=== PATIENT | male | born 1945 | race Caucasian/White ===

== ENCOUNTER 2017-02-18 09:50 | Day surgery (SDC) | payer MEDICARE, OTHER ==
--- NOTE | ~2017-02-18 | EGD ---
EGD REPORT [facility] [address] [address] NAME: UCHE LEBRON : [birth year] STATUS : REG [facility] PAT#: [id number] AGE: 72 ADM/REG DATE : 02/18/17 MR#: [id number] REPORT SERV DATE: 02/18/17 DICTATED BY: ESAU APONTE DATE: 02/18/17 REPORT STATUS : Draft TRANSCRIBED BY: [facility] DATE: 02/18/17 [facility] Patient Name: Uche Lebron Date of : 1945 Attending MD: ESAU APONTE MD Procedure Date No Time: 02/18/2017 Procedure: Colonoscopy Indications: Heme positive stool Referring MD: JACQUELIN BERG RN Medicines: Propofol per Anesthesia Complications: No immediate complications. Procedure: Pre-Anesthesia Assessment: - ASA Grade Assessment: IV - A patient with severe systemic disease that is a constant threat to life. After I obtained informed consent, the scope was passed under direct vision. Throughout the procedure, the patient's blood pressure, pulse, and oxygen saturations were monitored continuously. The PCF [id number] was introduced through the anus and advanced to the terminal ileum. The colonoscopy was performed without difficulty. The patient tolerated the procedure well. The quality of the bowel preparation was excellent. Findings: The terminal ileum appeared normal. A flat polyp was found in the cecum. The polyp was 3 mm in size. The polyp was removed with a cold biopsy forceps. Resection and retrieval were complete. Multiple medium-mouthed diverticula were found in the sigmoid colon. The retroflexed view of the distal rectum and anal verge was normal and showed no anal or rectal abnormalities. Impression: - The examined portion of the ileum was normal. - One 3 mm polyp in the cecum. Resected and retrieved. - Diverticulosis in the sigmoid colon. Recommendation: - The patient will be observed post-procedure, until all discharge criteria are met. - Return to previous diet today. - Continue present medications. - The findings and recommendations were discussed with the patient and their family. - After the procedure, if you experience any pain in abdomen or chest,shortness of breath,fever,chills,blood in stool,rectal bleeding,vomiting of any EGD REPORT [address] [address] NAME: UCHE LEBRON : [birth year] STATUS : REG [facility]#: [id number] AGE: 72 ADM/REG DATE : 02/18/17 MR#: [id number] REPORT SERV DATE: 02/18/17 DICTATED BY: ESAU APONTE DATE: 02/18/17 REPORT STATUS : Draft TRANSCRIBED BY: [employer] DATE: 02/18/17 material,nausea,black stools or weakness or dizziness, GO TO THE EMERGENCY IMMEDIATELY!!!!!!!!! Procedure Code(s): --- Professional --- 40788, Colonoscopy, flexible, proximal to splenic flexure; with biopsy, single or multiple Diagnosis Code(s): --- Professional --- K57.30, Diverticulosis of large intestine without perforation or abscess without bleeding D12.0, Benign neoplasm of cecum R19.5, Other fecal abnormalities CPT copyright 2013 [employer]. All rights reserved. The codes documented in this report are preliminary and upon web services architect review may be revised to meet current compliance requirements. Esau Aponte MD ESAU APONTE MD 02/18/2017 12:21 PM This report has been signed electronically. Number of Addenda: 0 Note Initiated On: 02/18/2017 11:54 AM Scope Withdrawal Time 0 hours 8 minutes 32 seconds [id number] [id number]
[~2017-02-18 09:50] MED LIST: ASAEC PO; COZAAR100 MG PO; EYE VITAMIN PO; FISH-EPA1000 MG PO; HYDROCODONE PO; LOTE20 PO; NIASPAN500 PO; OTC STOOL SOFTENER PO; PRILOSEC40 MG PO; PROVHFA; SPIRIVA INH; SYMBICORT 160/41 INH INH; T300 PO; THEO24300 PO; VITAMIN D1000 UNI1 PO; ZOCOR40 PO
== END 2017-02-18 23:59 | disposition home or self-care (01) ==
LOC: DMU 09:50
PROVIDERS: Internal Medicine Gastroenterology
PROC: 0DBH8ZX Excision of Cecum, Via Natural or Artificial Opening Endoscopic, Diagnostic (ICD-10-PCS; principal; 2017-02-18 13:00)
DX: D12.0 Benign neoplasm of cecum (principal); K57.30 Diverticulosis of large intestine without perforation or abscess without bleeding; J44.9 Chronic obstructive pulmonary disease, unspecified; K21.9 Gastro-esophageal reflux disease without esophagitis; I25.10 Atherosclerotic heart disease of native coronary artery without angina pectoris; I10 Essential (primary) hypertension; Z95.0 Presence of cardiac pacemaker; Z79.82 Long term (current) use of aspirin; Z79.899 Other long term (current) drug therapy; Z98.41 Cataract extraction status, right eye; Z98.42 Cataract extraction status, left eye
CPT/HCPCS: 88305

== ENCOUNTER 2017-03-11 16:49 | Inpatient (IN) | payer MEDICARE, OTHER ==
--- NOTE | ~2017-03-11 | HP ---
History And Physical [address] [place]. [address] NAME: UCHE CARRIZALES : [birth year] STATUS : ADM IN [facility]#: [id number] AGE: 72 ADM/REG DATE : 03/11/17 MR#: [id number] REPORT SERV DATE: 03/12/17 DICTATED BY: ROSARIO MONTEMAYOR DATE: 03/11/17 REPORT STATUS : Draft TRANSCRIBED BY: MODJeancarlos DATE: 03/11/17 DATE OF ADMISSION: 03/11/2017 TIME: 1730 hours. LOCATION: Seen in MICU. HISTORY OF PRESENT ILLNESS: The patient was transferred from [facility] for respiratory distress and pneumonia. This is a 72-year-old white male with oxygen-dependent COPD, presented with a 2- to 3-day history of increased shortness of breath, sputum production, and chills to [facility]. X-ray was done, right upper lobe pneumonia was found, they started on Rocephin and Zithromax, asked for transfer here. The patient arrived awake, alert, oriented, in no acute distress. PAST MEDICAL HISTORY: Cardiac stents in the past, pacemaker in the past in 2004, history of , hypertension, diverticulosis, macular degeneration, and polyps. ALLERGIES: NO KNOWN ALLERGIES. MEDICATIONS: Home medications include O2 2 L/minute, Spiriva 1 puff daily, Symbicort 2 puffs daily, Proventil HFA as needed, theophylline 300 mg b.i.d., losartan 100 mg p.o. daily, fish oil 1000 mg p.o. daily, vitamin capsules 1000 mg daily, simvastatin 40, theophylline 300 b.i.d. and omeprazole 40. REVIEW OF SYSTEMS: Otherwise negative and noncontributory. FAMILY HISTORY: Significant for one family member of colon cancer, one of breast cancer. PHYSICAL EXAMINATION: VITAL SIGNS: Blood pressure 115/61, pulse 84, saturation 98, temperature normal. HEENT: Head is normocephalic. Sclerae and conjunctivae are clear. NECK: Supple. Good upstroke. No bruits. CHEST: Decreased breath sounds. Some crackles in the right upper lobe. Occasional expiratory wheeze. CARDIAC: S1, S2. No murmurs or gallops. PMI is not displaced. ABDOMEN: Soft and nontender. No masses or organomegaly. EXTREMITIES: No clubbing, cyanosis, or edema. Pulses palpable. NEUROLOGIC: Grossly intact. LABORATORY DATA: Laboratories derived from [place] show troponin of 0.03, which is 1 unit above their cutoff. Also, H and H of 9.7 and 31.4, white count 99956, platelets 322,000. Chest x-ray is pending. IMPRESSION: History And Physical [address] [address] NAME: UCHE CARRIZALES : [birth year] STATUS : ADM IN [facility]#: [id number] AGE: 72 ADM/REG DATE : 03/11/17 MR#: [id number] REPORT SERV DATE: 03/12/17 DICTATED BY: ROSARIO MONTEMAYOR DATE: 03/11/17 REPORT STATUS : Draft TRANSCRIBED BY: KARMA DATE: 03/11/17 1. Community-acquired pneumonia. 2. Chronic obstructive pulmonary disease exacerbation. 3. History of coronary artery disease. 4. Oxygen dependency. 5. Hypertension. PLAN: Urinary antigens. Chest x-ray. Continue antibiotics. Check procalcitonin level. Bronchodilator protocol. RP/KARMA Rosario Montemayor M.D. / [id number] CC: Rosario Montemayor M.D.
--- NOTE | ~2017-03-11 | DS ---
Discharge Summary [facility] [address] [place]. [address] NAME: UCHE CARRIZALES : [birth year] STATUS : DIS IN PAT#: [id number] AGE: 72 ADM/REG DATE : 03/11/17 MR#: [id number] REPORT SERV DATE: 03/15/17 DICTATED BY: MAREK LAMB DATE: 03/15/17 REPORT STATUS : Draft TRANSCRIBED BY: MODL DATE: 03/15/17 ADMISSION DATE: 03/11/2017 DISCHARGE DATE: 03/15/2017 DISCHARGE DIAGNOSES: 1. Acute on chronic respiratory failure. 2. Acute exacerbation of chronic obstructive pulmonary disease, oxygen dependent. 3. Hypertension, stable. 4. Acute kidney injury, improving. IMAGIN. Chest x-ray, 03/11/2017, impression bibasilar fibrosis and right greater than left upper lobe emphysematous disease. 2. Chest x-ray, 03/12/2017, impression right base has more fibrotic appearance as opposed to consolidative appearance and there is also an upper lobe emphysematous disease most pronounced on the right. 3. Chest x-ray, 03/14/2017, bilateral infiltrates left greater than right, slightly improved from 03/12/2017. 4. Echocardiogram, 03/12/2017, normal left ventricular systolic function with ejection fraction of 60-65%. Dilated left atrium. Mild diastolic dysfunction. Normal right ventricular chamber size and systolic function. Valvular regurgitation is noted above. LABORATORY DATA: WBCs 13.4, hemoglobin 9.7, hematocrit 33.1, and platelet count 453. Sodium 142, potassium 4.4, chloride is 111, CO2 is 26, BUN is 28, creatinine is 1.41, glucose is 165, calcium is 9.0. COURSE AT HOSPITAL STAY: Please refer to history and physical dictated by Dr. Rucker on 03/11/2017, for complete admission details. This patient is a 72-year-old male, who has oxygen dependent COPD, who presented to [facility] with complaints of persistent 2-3 day increased shortness of breath, productive sputum, and chills. The patient was evaluated in [facility]. X-rays were obtained and show possible right upper lobe pneumonia. The patient was initially started on Rocephin and Zithromax and then transferred to [facility]. At that time of evaluation, the patient was transferred to MICU under the care of Dr. Rucker. Initial diagnosis of community-acquired pneumonia was ruled out. It was noted the patient did have chronic obstructive pulmonary disease with exacerbation as well as acute on chronic respiratory failure. Antibiotics were discontinued. The patient was continued on Solu- Medrol x2 days and then changed to prednisone. The patient was continued on DuoNeb treatments as well as Dulera. Oxygen was weaned down to 6 L. At this time, the patient's O2 sats are above 92%. He will be discharged home on 2 L of nasal cannula to follow up with his primary care and Dr. Hamilton within five to seven days. The patient was noted with hypertension this has remained stable as well the patient did have elevated BUN and creatinine during his hospital stay. Acute kidney injury was noted. At this time, BUN is 28, creatinine is 1.41. He will follow up with his primary care for further evaluation. Discharge Summary [address] [address] NAME: UCHE CARRIZALES : [birth year] STATUS : DIS IN [facility]#: [id number] AGE: 72 ADM/REG DATE : 03/11/17 MR#: [id number] REPORT SERV DATE: 03/15/17 DICTATED BY: MAREK LAMB DATE: 03/15/17 REPORT STATUS : Draft TRANSCRIBED BY: KARMA DATE: 03/15/17 The patient is being discharged home in hemodynamically stable condition. Will follow up with his primary care and receptionist clerk within five to seven days. The patient does state understanding. DISCHARGE MEDICATIONS: 1. Aspirin 325 mg one p.o. daily. 2. Vitamin D 1000 units, 1000 units p.o. every day. 3. Colace 100 mg one p.o. p.r.n. for constipation. 4. Cozaar 100 mg p.o. every morning. 5. ICaps Lutein and Diamond-3 softgel two tabs p.o. every morning. 6. Fish oil 1000 mg, 4000 mg p.o. every morning. 7. Prilosec 40 mg one p.o. every morning. 8. Zocor 40 mg one p.o. every day. 9. Theophylline ER 300 mg one p.o. twice daily. 10.Symbicort 160/4.4 inhaler, one inhaler two puffs inhaled twice daily. 11.Spiriva inhaler one cap inhaled every morning. 12.Proventil inhaler 6.7 g inhaler two puffs inhaled p.r.n. for shortness of breath. 13.Niacin 500 mg, 1000 mg p.o. at bedtime. 14.Nitroglycerin 0.4 mg sublingual p.r.n. for chest pain. 15.Flonase nasal spray, 1-2 sprays per nasal p.r.n. for allergies. This discharge took less than 30 minutes. DICTATED BY: DARRIN Chatterjee/MODL Marek Lamb NP / [id number] CC: Leatha Dodd Sharon G
[2017-03-11 17:18] LABS: ALLENS TEST Pos; BE (BASE EXCESS) -1.5 MEQ/L (0 +/- 2.5); CARBOXYHEMOGLOBIN 1.3 % (0-3); DEVICE HFNC; HCO3 (ACTUAL BICARBONATE) 22.5 MEQ/L (23-27); HEMOBLOGIN CONTENT 10.3 G/DL (14-18); INSTRUMENT SERIAL # 8083; METHEMOGLOBIN 0.2 % (0-3); O2 CONTENT 13.5 VOL% (18-24); OPERATOR ID 32214; PCO2 (CO2 TENSION) 35 MMHG (35-45); PO2 (O2 TENSION) 71 MMHG (79-93); SAMPLE Arterial; pH 7.42 (7.37-7.43)
[2017-03-11 19:17] LABS: BUN (BLOOD UREA NITROGEN) 19 MG/DL (6-23); CALCIUM, SERUM 8.8 MG/DL (8.5-10.4); CHLORIDE, SERUM 105 MMOL/L (96-112); CO2 (CARBON DIOXIDE) 25 MMOL/L (24-34); CREATININE 1.49 MG/DL (0.70-1.30); GFR AFRICAN AMERICAN 54 ML/MIN (>=60); GFR NON AFRICAN AMERICAN 47 ML/MIN (>=60); GLUCOSE, SERUM 149 MG/DL (60-99); POTASSIUM, SERUM 4.2 MMOL/L (3.5-5.3); SODIUM, SERUM 137 MMOL/L (135-148); TROPONIN I <0.02 NG/ML (<0.05)
[2017-03-11] MEDS ORDERED: SPIRIVA INH (22:10)
[2017-03-11] MEDS ORDERED: PROVHFA INH (22:10)
[2017-03-11] MEDS ORDERED: T300 PO (22:10)
[2017-03-11] MEDS ORDERED: COZAAR100 MG PO (22:10)
[2017-03-11] MEDS ORDERED: PRILOSEC40 MG PO (22:10)
[2017-03-11] MEDS ORDERED: SYMBICORT 160/41 INH INH (22:10)
[2017-03-11] MEDS ORDERED: DSS PO (22:11)
[2017-03-11] MEDS ORDERED: ASABAYER PO (22:11)
[2017-03-11] MEDS ORDERED: FISH-EPA1000 MG PO (22:11)
[2017-03-11] MEDS ORDERED: ZOCOR40 PO (22:11)
[2017-03-11] MEDS ORDERED: NIACIN 500 PO (22:11)
[2017-03-11] MEDS ORDERED: ICAPS LUTEI1 PO (22:12)
[2017-03-11] MEDS ORDERED: NITROSTAT0.4 MG SL (22:12)
[2017-03-11] MEDS ORDERED: VITAMIN D1000 UNI1 PO (22:12)
[2017-03-11] MEDS ORDERED: FLONASE NAS (22:13)
[2017-03-12 05:20] LABS: BASOPHILS 0.1 %; BASOPHILS ABSOLUTE 0.01 10/3/uL (0.0-0.16); EOSINOPHILS 0.1 %; EOSINOPHILS ABSOLUTE 0.01 10/3/uL (0.0-0.53); HEMATOCRIT 31.3 % (40.0-51.0); HEMOGLOBIN 9.3 g/dL (13.6-17.8); IMMATURE GRANULOCYTES 0.4 %; IMMATURE GRANULOCYTES ABSOLUTE 0.05 10/3/uL (0.0-0.11); LYMPHOCYTES ABSOLUTE 0.93 10/3/uL (0.67-4.30); MEAN CORPUS HGB CONC 29.7 g/dL (32.0-36.0); MEAN CORPUSCULAR HEMOGLOB 22.1 pg (26.0-34.0); MEAN CORPUSCULAR VOLUME 74.3 fL (80-100); MEAN PLATELET VOLUME 9.5 fL (9.2-13.0); MONOCYTES 5.4 %; MONOCYTES ABSOLUTE 0.72 10/3/uL (0.21-1.20); NEUTROPHILS ABSOLUTE 11.61 10/3/uL (2.02-8.40); PLATELET COUNT 379 10/3/uL (150-400); RBC DISTRIBUTION WIDTH 17.7 % (12.0-16.0); RED CELL COUNT 4.21 10/6/uL (4.7-6.1); WHITE BLOOD CELLS 13.3 10/3/uL (4.5-10.5)
[2017-03-12 05:21] LABS: MANUAL DIFF NO %
[2017-03-12 05:38] LABS: A/G RATIO 0.6 (0.7-1.9); ALBUMIN 2.8 G/DL (3.5-5.0); ALKALINE PHOSPHATASE 81 U/L (45-117); CALCIUM, SERUM 8.6 MG/DL (8.5-10.4); CHLORIDE, SERUM 106 MMOL/L (96-112); CO2 (CARBON DIOXIDE) 27 MMOL/L (24-34); CREATININE 1.48 MG/DL (0.70-1.30); GFR AFRICAN AMERICAN 54 ML/MIN (>=60); GFR NON AFRICAN AMERICAN 47 ML/MIN (>=60); GLOBULIN 4.9 G/DL (2.5-4.1); GLUCOSE, SERUM 149 MG/DL (60-99); SGPT(ALT) 16 U/L (5-65); SODIUM, SERUM 140 MMOL/L (135-148); TOTAL PROTEIN 7.7 G/DL (6.0-8.5); TROPONIN I <0.02 NG/ML (<0.05)
[2017-03-12 05:39] LABS: BUN (BLOOD UREA NITROGEN) 25 MG/DL (6-23); POTASSIUM, SERUM 4.5 MMOL/L (3.5-5.3); SGOT(AST) 21 U/L (5-40)
[2017-03-12 05:54] LABS: PLATELET ESTIMATE ADQ (ADEQUATE)
[2017-03-12 05:55] LABS: ELLIPTOCYTES 1+ (3-10/OIF) (0-2/OIF); MICROCYTES 1+ (5-10/OIF) (0-5/OIF)
[2017-03-12 06:31] LABS: PROCALCITONIN 0.13 ng/mL (<0.5)
[2017-03-12 09:30] LABS: IRON, SERUM 26 MCG/DL (35-150)
[2017-03-12 09:47] LABS: FERRITIN 49 NG/ML (26-388)
[2017-03-12 09:48] LABS: % IRON SAT 7 % (20-50); IRON BINDING CAPACITY 369 MCG/DL (250-450)
[2017-03-13 06:21] LABS: BASOPHILS 0.4 %; BASOPHILS ABSOLUTE 0.06 10/3/uL (0.0-0.16); EOSINOPHILS 5.9 %; EOSINOPHILS ABSOLUTE 0.83 10/3/uL (0.0-0.53); HEMATOCRIT 29.8 % (40.0-51.0); HEMOGLOBIN 8.6 g/dL (13.6-17.8); IMMATURE GRANULOCYTES 0.4 %; IMMATURE GRANULOCYTES ABSOLUTE 0.06 10/3/uL (0.0-0.11); LYMPHOCYTES ABSOLUTE 1.68 10/3/uL (0.67-4.30); MEAN CORPUS HGB CONC 28.9 g/dL (32.0-36.0); MEAN CORPUSCULAR HEMOGLOB 21.8 pg (26.0-34.0); MEAN CORPUSCULAR VOLUME 75.6 fL (80-100); MEAN PLATELET VOLUME 9.1 fL (9.2-13.0); MONOCYTES 8.3 %; MONOCYTES ABSOLUTE 1.17 10/3/uL (0.21-1.20); NEUTROPHILS ABSOLUTE 10.22 10/3/uL (2.02-8.40); PLATELET COUNT 371 10/3/uL (150-400); RBC DISTRIBUTION WIDTH 17.6 % (12.0-16.0); RED CELL COUNT 3.94 10/6/uL (4.7-6.1)
[2017-03-13 06:23] LABS: MANUAL DIFF NO %
[2017-03-13 06:33] LABS: CALCIUM, SERUM 8.2 MG/DL (8.5-10.4); CHLORIDE, SERUM 112 MMOL/L (96-112); CO2 (CARBON DIOXIDE) 30 MMOL/L (24-34); CREATININE 1.52 MG/DL (0.70-1.30); GFR AFRICAN AMERICAN 53 ML/MIN (>=60); GFR NON AFRICAN AMERICAN 45 ML/MIN (>=60); POTASSIUM, SERUM 4.3 MMOL/L (3.5-5.3); SODIUM, SERUM 146 MMOL/L (135-148)
[2017-03-13 06:34] LABS: BUN (BLOOD UREA NITROGEN) 30 MG/DL (6-23); GLUCOSE, SERUM 105 MG/DL (60-99); THEOPHYLLINE < 2.0 MCG/ML (8.0-15.0)
[2017-03-13 07:03] LABS: PROCALCITONIN 0.13 ng/mL (<0.5)
[2017-03-14 05:49] LABS: BASOPHILS 0.1 %; BASOPHILS ABSOLUTE 0.02 10/3/uL (0.0-0.16); EOSINOPHILS 0.1 %; EOSINOPHILS ABSOLUTE 0.01 10/3/uL (0.0-0.53); HEMOGLOBIN 9.7 g/dL (13.6-17.8); IMMATURE GRANULOCYTES 0.4 %; IMMATURE GRANULOCYTES ABSOLUTE 0.06 10/3/uL (0.0-0.11); LYMPHOCYTES 8.7 %; LYMPHOCYTES ABSOLUTE 1.17 10/3/uL (0.67-4.30); MEAN CORPUS HGB CONC 29.3 g/dL (32.0-36.0); MEAN CORPUSCULAR HEMOGLOB 22.1 pg (26.0-34.0); MEAN CORPUSCULAR VOLUME 75.6 fL (80-100); MEAN PLATELET VOLUME 9.6 fL (9.2-13.0); MONOCYTES 5.1 %; MONOCYTES ABSOLUTE 0.68 10/3/uL (0.21-1.20); NEUTROPHILS 85.6 %; NEUTROPHILS ABSOLUTE 11.47 10/3/uL (2.02-8.40); PLATELET COUNT 453 10/3/uL (150-400); RBC DISTRIBUTION WIDTH 17.7 % (12.0-16.0); RED CELL COUNT 4.38 10/6/uL (4.7-6.1); WHITE BLOOD CELLS 13.4 10/3/uL (4.5-10.5)
[2017-03-14 05:56] LABS: HEMATOCRIT 33.1 % (40.0-51.0)
[2017-03-14 05:57] LABS: MANUAL DIFF NO %
[2017-03-14 06:01] LABS: BUN (BLOOD UREA NITROGEN) 28 MG/DL (6-23); CHLORIDE, SERUM 111 MMOL/L (96-112); CO2 (CARBON DIOXIDE) 26 MMOL/L (24-34); CREATININE 1.41 MG/DL (0.70-1.30); GFR AFRICAN AMERICAN 58 ML/MIN (>=60); GFR NON AFRICAN AMERICAN 50 ML/MIN (>=60); GLUCOSE, SERUM 165 MG/DL (60-99); POTASSIUM, SERUM 4.4 MMOL/L (3.5-5.3); SODIUM, SERUM 142 MMOL/L (135-148)
[2017-03-15] MEDS ORDERED: MULTIVITAMI1 PO (11:27)
== END 2017-03-15 12:05 | disposition home or self-care (01) | DRG 189 ==
LOC: MIC 16:49 → 4EA 03-12 13:54
PROVIDERS: Internal Medicine Critical Care Medicine; Nurse Practitioner Adult Health
DX: J96.21 Acute and chronic respiratory failure with hypoxia (principal); N17.9 Acute kidney failure, unspecified; J44.1 Chronic obstructive pulmonary disease with (acute) exacerbation; Z99.81 Dependence on supplemental oxygen; I10 Essential (primary) hypertension; Z95.5 Presence of coronary angioplasty implant and graft; Z95.0 Presence of cardiac pacemaker
CPT/HCPCS: 36600; 71010; 71020; 80048; 80053; 80198; 82728; 82805; 83540; 83550; 84145; 84443; 84481; 84484; 85025; 87070; 87205; 87449; 87641; 94640; A9270-GY; C8929; J0360; J0456; Q9957